=== PATIENT | female | born 1990 | race African-American/Black ===

== ENCOUNTER 2018-08-17 21:44 | Emergency (ER) | payer MEDICAID ==
[~2018-08-17] VITALS: Ht 172.7 cm; Wt 63.2 kg
[2018-08-17 22:02] VITALS: BP 136/91
== END 2018-08-17 22:10 | disposition left against medical advice (07) ==
LOC: ER 21:44
DX: F41.9 Anxiety disorder, unspecified (principal); Z53.21 Procedure and treatment not carried out due to patient leaving prior to being seen by health care provider